=== PATIENT | male | born 1965 | race Caucasian/White ===

== ENCOUNTER 2022-08-26 10:29 | Inpatient (IN) ==
[2022-08-26 09:03] LABS: Basophils % 0.2 % (0.0-0.8); Eosinophils # 0.1 10*3/uL (0.0-0.87); Eosinophils % 1.5 % (0.00-10.9); Hematocrit 45.3 VOL% (42.0-52.0); Hemoglobin 14.8 GM/DL (14.0-18.0); Immature Granulocytes % 0.3 %; Immature Granulocytes Absolute 0.03 #; Lymphocytes # 2.3 10*3/uL (1.4-4.0); Lymphocytes % 24.3 % (21.2-54.2); Mean Corpuscular HGB Conc 32.7 GM/DL (32-36); Mean Corpuscular Volume 87.8 FL (87-102); Mean Platelet Volume 11.1 FL (9.6-12.0); Monocytes # 0.8 10*3/uL (0.11-0.8); Monocytes % 8.6 % (1.7-12.7); Neutrophils % 65.1 % (38.7-73.9); Platelet Count 205 T/CUMM (130-400); Red Blood Count 5.16 MC/CUMM (3.8-5.5); Red Cell Distribution Width 12.9 % (9.3-17.3); White Blood Count 9.47 T/CUMM (4-12)
[2022-08-26 09:13] LABS: INR 0.9; Partial Thromboplastin Time 27.3 SECS (23.7-32.9)
[2022-08-26 09:22] LABS: Albumin 3.8 G/DL (3.4-5.0); Bilirubin,Total 0.5 MG/DL (0.20-1.00); Calcium 9.1 MG/DL (8.5-10.1); Osmolality,Calculated 279.4 MOS/KG (273-304); Potassium 3.9 MMOL/L (3.5-5.1); Total Protein 7.1 G/DL (6.4-8.2)
[~2022-08-26 10:29] MED LIST: ALUMINUM/MAGNES/SIMETH MAX STR 30 ML UDCUP PO PRN; ASPIRIN 325 MG TABLET ONE; ASPIRIN 325 MG TABLET PO STA; DOCUSATE SODIUM 100 MG CAPSULE PO PRN; HEPARIN 5,000 UNIT/1 ML VIAL IV ONE; HEPARIN 5,000 UNIT/1 ML VIAL ONE; METOPROLOL TARTRATE 5 MG/5 ML VIAL IV ONE; METOPROLOL TARTRATE 5 MG/5 ML VIAL IV STA; MIDAZOLAM 2 MG/2 ML VIAL ONE; MORPHINE 2 MG/1 ML SYRINGE IV PRN; NITROGLYCERIN DRIP 50 MG/250 ML BOTTLE IV ONE; NITROGLYCERIN SL 0.4 MG TABLET SL PRN; ONDANSETRON 4 MG/2 ML VIAL IV PRN; SODIUM CHLORIDE 0.45% 1,000 ML IV SCH; TICAGRELOR 90 MG TABLET ONE; TIROFIBAN 5,000 MCG/100 ML PREMIX IV ONE; TIROFIBAN 5,000 MCG/100 ML PREMIX IV SCH; ZALEPLON 5 MG CAPSULE PO PRN; fentaNYL 100 MCG/2 ML VIAL ONE; hydrALAZINE 20 MG/1 ML VIAL IV PRN
[2022-08-26] MEDS: VALSARTAN 80 MG TABLET PO SCH (12:23)
[2022-08-26] MEDS: carvediloL 6.25 MG TABLET PO SCH (20:10)
[2022-08-26] MEDS: ROSUVASTATIN 20 MG TABLET PO SCH (20:10)
[2022-08-26] MEDS: TICAGRELOR 90 MG TABLET PO SCH (20:10)
[2022-08-27 04:51] LABS: Basophils % 0.1 % (0.0-0.8); Eosinophils # 0.1 10*3/uL (0.0-0.87); Eosinophils % 1.1 % (0.00-10.9); Hematocrit 43.1 VOL% (42.0-52.0); Hemoglobin 14.1 GM/DL (14.0-18.0); Immature Granulocytes % 0.4 %; Immature Granulocytes Absolute 0.04 #; Lymphocytes # 1.7 10*3/uL (1.4-4.0); Lymphocytes % 17.7 % (21.2-54.2); Mean Corpuscular HGB Conc 32.7 GM/DL (32-36); Mean Platelet Volume 11.2 FL (9.6-12.0); Monocytes # 0.7 10*3/uL (0.11-0.8); Monocytes % 7.3 % (1.7-12.7); Neutrophils % 73.4 % (38.7-73.9); Platelet Count 191 T/CUMM (130-400); Red Blood Count 4.84 MC/CUMM (3.8-5.5); Red Cell Distribution Width 12.9 % (9.3-17.3); White Blood Count 9.75 T/CUMM (4-12)
[2022-08-27 05:08] LABS: Osmolality,Calculated 278.4 MOS/KG (273-304); Potassium 4.9 MMOL/L (3.5-5.1)
[2022-08-27 05:17] LABS: Risk Ratio 4.91
[2022-08-27] MEDS: ASPIRIN EC 81 MG TABLET PO SCH (09:01)
[2022-08-27] MEDS: VALSARTAN 80 MG TABLET PO SCH (09:02)
[2022-08-27] MEDS: PANTOPRAZOLE 40 MG TABLET PO SCH (09:02)
[2022-08-27] MEDS: carvediloL 6.25 MG TABLET PO SCH ×2 (09:02→20:44)
[2022-08-27] MEDS: TICAGRELOR 90 MG TABLET PO SCH ×2 (09:02→20:45)
[2022-08-27 20:08] VITALS: BP 127/76
[2022-08-27] MEDS: ROSUVASTATIN 20 MG TABLET PO SCH (20:45)
[2022-08-28 04:49] LABS: Basophils % 0.2 % (0.0-0.8); Eosinophils # 0.1 10*3/uL (0.0-0.87); Eosinophils % 1.4 % (0.00-10.9); Hematocrit 42.2 VOL% (42.0-52.0); Hemoglobin 14.2 GM/DL (14.0-18.0); Immature Granulocytes % 0.5 %; Immature Granulocytes Absolute 0.05 #; Lymphocytes # 1.7 10*3/uL (1.4-4.0); Lymphocytes % 16.7 % (21.2-54.2); Mean Corpuscular HGB Conc 33.6 GM/DL (32-36); Mean Corpuscular Volume 87.4 FL (87-102); Mean Platelet Volume 11.5 FL (9.6-12.0); Monocytes # 0.6 10*3/uL (0.11-0.8); Monocytes % 6.3 % (1.7-12.7); Neutrophils % 74.9 % (38.7-73.9); Platelet Count 171 T/CUMM (130-400); Red Blood Count 4.83 MC/CUMM (3.8-5.5); Red Cell Distribution Width 12.9 % (9.3-17.3); White Blood Count 10.04 T/CUMM (4-12)
[2022-08-28 05:09] LABS: Osmolality,Calculated 281.3 MOS/KG (273-304); Potassium 4.2 MMOL/L (3.5-5.1)
[2022-08-28] MEDS: ASPIRIN EC 81 MG TABLET PO SCH (08:08)
[2022-08-28] MEDS: carvediloL 6.25 MG TABLET PO SCH (08:08)
[2022-08-28] MEDS: VALSARTAN 80 MG TABLET PO SCH (08:08)
[2022-08-28] MEDS: TICAGRELOR 90 MG TABLET PO SCH (08:08)
[2022-08-28] MEDS: PANTOPRAZOLE 40 MG TABLET PO SCH (08:08)
== END 2022-08-28 13:18 | disposition home or self-care (01) | DRG 247 ==
LOC: N.ED 10:29 → EDSTATUS 10:30 → N.CC 10:33
PROVIDERS: ADMIT Emergency Medicine; ATTEND Emergency Medicine
PROC: CLCCHCL (ICD-10-PCS; 2022-08-26 10:30)